=== PATIENT | male | born 1995 | race Caucasian/White ===

== ENCOUNTER 2019-04-20 16:54 | Emergency (ER) | payer OTHER ==
[~2019-04-20] VITALS: Ht 177.8 cm; Wt 113.6 kg
[2019-04-20 16:59] VITALS: TEMP 98.9
[2019-04-20] MEDS ORDERED: FLEXERIL 1010 MG/TAB PO (19:09)
[2019-04-20 19:47] VITALS: BP 138/76; PULSE 72
== END 2019-04-20 19:47 | disposition home or self-care (01) ==
LOC: COL.ER 16:54
DX: M54.5 Low back pain (principal); K21.9 Gastro-esophageal reflux disease without esophagitis; F17.210 Nicotine dependence, cigarettes, uncomplicated
CPT/HCPCS: J1885